=== PATIENT | female | born 1990 | race Two or more races ===

== ENCOUNTER 2019-05-12 10:15 | Emergency (ER) | payer BC ==
[2019-05-12 10:21] VITALS: BP 119/73
--- NOTE | 2019-05-12 11:45 | ER Document Report ---
ED Medical Screen (RME) - General Chief Complaint: Vaginal Bleeding Stated Complaint: VAGINAL BLEEDING Time Seen by Provider: 05/12/19 11:40 Mode of Arrival: Ambulatory Information source: Patient Notes: Patient is an otherwise healthy 28-year-old female presenting to the emergency department chief complaint of abnormal vaginal bleeding and left lower quadrant abdominal pain. Patient reports history of ectopic a few months back and had a right sided oophorectomy. Patient is concerned because she had a. About 1 month ago and has been having intermittent bleeding and left lower quadrant abdominal pain since then. She is concerned she may be having another ectopic . Patient has not had a confirmed positive test at this time however. Patient is a G3, P0. She denies any fevers, nausea, vomiting or diarrhea. Exam: Mild tenderness to palpation to left lower quadrant. I have greeted and performed a rapid initial assessment of this patient. A comprehensive ED assessment and evaluation of the patient, analysis of test results and completion of the medical decision making process will be conducted by additional ED providers. I have specifically instructed the patient or family members with the patient to immediately return to any nursing staff should anything change in the patient's condition or with their chief complaint. This medical record was dictated with voice recognizing software. There may be grammatical, syntax errors that are unintended. - Related Data Allergies/Adverse Reactions: No Known Allergies Allergy (Verified 05/12/19 10:17) Physical Exam - Vital signs Vitals: Temp Pulse Resp BP Pulse Ox 98.8 F 67 16 119/73 96 05/12/19 10:20 05/12/19 10:20 05/12/19 10:20 05/12/19 10:20 05/12/19 10:20 Course - Vital Signs Vital signs: Temp Pulse Resp BP Pulse Ox 98.8 F 67 16 119/73 96 05/12/19 10:20 05/12/19 10:20 05/12/19 10:20 05/12/19 10:20 05/12/19 10:20
[2019-05-12 12:13] LABS: APPEARANCE,URINE SLIGHTLY-CLOUDY; BILIRUBIN,URINE NEGATIVE (NEGATIVE); COLOR,URINE YELLOW; GLUCOSE, URINE NEGATIVE (NEGATIVE); KETONES,URINE NEGATIVE (NEGATIVE); LEUKOCYTE ESTERASE,URINE NEGATIVE (NEGATIVE); NITRITE,URINE NEGATIVE (NEGATIVE); PROTEIN,URINE NEGATIVE (NEGATIVE); URINE SPECIFIC GRAVITY 1.018; UROBILINOGEN,URINE NEGATIVE mg/dL (<2.0)
[2019-05-12 12:23] LABS: ABSOLUTE EOSINOPHILS # (AUTO) 0.1 10^3/uL (0.0-0.6); ABSOLUTE MONOCYTES (AUTO) 0.5 10^3/uL (0.1-1.4); ABSOLUTE NEUT (AUTO) 3.9 10^3/uL (1.7-8.2); BASOPHILS % (AUTO) 0.6 % (0-2); EOSINOPHILS % (AUTO) 1.6 % (0-6); HEMATOCRIT 41.3 % (36.0-47.0); HEMOGLOBIN 14.3 g/dL (12.0-15.5); MEAN CORPUSCULAR HEMOGLOBIN 32.1 pg (27.0-33.4); MEAN CORPUSCULAR HGB CONC 34.5 g/dL (32.0-36.0); MEAN CORPUSCULAR VOLUME 93 fl (80-97); MONOCYTES % (AUTO) 7.4 % (3-13); PLATELET COUNT 297 10^3/uL (150-450); RED BLOOD COUNT 4.45 10^6/uL (3.72-5.28); RED CELL DISTRIBUTION WIDTH 13.1 % (11.5-14.0); SEGMENTED NEUTROPHILS % (AUTO) 59.4 % (42-78); TOTAL CELLS COUNTED % (AUTO) 100 %; WHITE BLOOD COUNT 6.6 10^3/uL (4.0-10.5)
[2019-05-12 12:44] LABS: ALBUMIN 4.5 g/dL (3.5-5.0); ALKALINE PHOSPHATASE 50 U/L (38-126); ANION GAP 8 (5-19); ASPARTATE AMINO TRANSFERASE 21 U/L (14-36); BILIRUBIN,TOTAL 0.6 mg/dL (0.2-1.3); BLOOD UREA NITROGEN 11 mg/dL (7-20); CALCIUM 9.6 mg/dL (8.4-10.2); CARBON DIOXIDE 28 mmol/L (22-30); CHLORIDE 102 mmol/L (98-107); GLUCOSE 87 mg/dL (75-110); POTASSIUM 4.6 mmol/L (3.6-5.0); TOTAL PROTEIN 7.4 g/dL (6.3-8.2)
--- NOTE | 2019-05-12 13:08 | RADIOLOGY REPORT (SQ) ---
EXAM DESCRIPTION: U/S NON OB PEL TV W/DOPPLER COMPLETED DATE/TIME: 05/12/2019 12:47 pm REASON FOR STUDY: LLQ pain, abn bleeding COMPARISON: None. TECHNIQUE: Dynamic and static grayscale images acquired of the pelvis via transvaginal approach and recorded on PACS. Additional selected color Doppler and spectral images recorded. LIMITATIONS: None. FINDINGS: UTERUS: There is a small hypoechoic area along the posterior wall the uterus most likely s mall fibroid. This measures 1.2 x 1.6 x 1.1 cm. ENDOMETRIAL STRIPE: No focal or generalized thickening. No masses. CERVIX: No nabothian cysts. Questionable small area of calcification within the cervix with shadowin g. RIGHT OVARY AND DOPPLER: Normal size. No worrisome masses. Normal arterial vascular flow without evid ence for torsion. LEFT OVARY AND DOPPLER: Left ovary is normal in size and demonstrates normal flow. Adjacent to the l eft ovary is a 1.4 x 1.4 x 1.5 cm hypoechoic area. It demonstrates a fairly echogenic margin with a small rim of hypoechogenicity. FREE FLUID: There is a small amount of free fluid in the cul-de-sac. OTHER: No other significant finding. MEASUREMENTS: UTERUS: 8.1 x 5.4 x 4.3 cm. ENDOMETRIAL STRIPE: 1.2 cm. RIGHT OVARY: 3.1 x 2.1 x 2.1 cm. LEFT OVARY: 2.3 x 2.3 x 2.9 cm. IMPRESSION: 1. Small hypoechoic lesion in the posterior aspect of the uterus most likely small fibro id. 2. 1.4 x 1.4 x 1.5 cm lesion adjacent to the left ovary. Possibly exophytic cyst. Correlation with beta HCG is recommended. Ectopic cannot be excluded. Consider follow-up beta HCG and ult rasound as well. TECHNICAL DOCUMENTATION: JOB ID: [id number] [employer]- All Rights Reserved Rev-01/17 Reading location - IP/workstation name: [email or web address]
--- NOTE | 2019-05-12 14:40 | ER Document Report ---
ED GI/ - General Chief Complaint: Vaginal Bleeding Stated Complaint: VAGINAL BLEEDING Time Seen by Provider: 05/12/19 11:40 Mode of Arrival: Ambulatory Notes: Patient is a 28-year-old female who presents to the emergency department with a chief complaint of abdominal pain. Patient states she has had intermittent ab dominal pain located on the left lower quadrant for 2 days. Patient reports this feels like an aching type pain. Patient states she has had a similar pain in the past and did have a right ectopic in which she did require removal of her fallopian tube. Patient reports that this was just a few months ago. Patient also reports having some light pink vaginal discharge and bleeding like a. Last week. Patient states she is not currently on any control and is sexually active. 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 Patient reports her last menstrual cycle was in the middle of April. Patient denies fever. Patient denies nausea, vomiting or diarrhea. Patient denies urinary symptoms. Patient denies specific vaginal discharge or odor. Patient denies home positive test. - Related Data Allergies/Adverse Reactions: No Known Allergies Allergy (Verified 05/12/19 10:17) Past Medical History - General Information source: Patient - Social History Smoking Status: Never Smoker Chew tobacco use (# tins/day): No Frequency of alcohol use: None Drug Abuse: None Lives with: Spouse/Significant other Family History: None Patient has suicidal ideation: No Patient has homicidal ideation: No - Past Medical History Cardiac Medical History: Reports: None Pulmonary Medical History: Reports: None EENT Medical History: Reports: None Neurological Medical History: Reports: None Endocrine Medical History: Reports: None Renal/ Medical History: Reports: None Malignancy Medical History: Reports: None GI Medical History: Reports: None Musculoskeletal Medical History: Reports None Skin Medical History: Reports None Psychiatric Medical History: Reports: None Traumatic Medical History: Reports: None Infectious Medical History: Reports: None Surgical Hx: Negative Review of Systems - Review of Systems Constitutional: No symptoms reported EENT: No symptoms reported Cardiovascular: No symptoms reported Respiratory: No symptoms reported Gastrointestinal: See HPI Genitourinary: No symptoms reported Female Genitourinary: See HPI Musculoskeletal: No symptoms reported Skin: No symptoms reported Hematologic/Lymphatic: No symptoms reported Neurological/Psychological: No symptoms reported Physical Exam - Vital signs Vitals: Temp Pulse Resp BP Pulse Ox 98.8 F 67 16 119/73 96 05/12/19 10:20 05/12/19 10:20 05/12/19 10:20 05/12/19 10:20 05/12/19 10:20 Interpretation: Normal - Notes Notes: GENERAL: Well-appearing, well-nourished and in no acute distress. HEAD: Atraumatic, normocephalic. EYES: Pupils equal round and reactive to light, extraocular movements intact, sclera anicteric, conjunctiva are normal. ENT: Nares patent, oropharynx clear without exudates. Moist mucous membranes. NECK: Normal range of motion, supple without lymphadenopathy or JVD. LUNGS: Breath sounds clear to auscultation bilaterally and equal. No wheezes rales or rhonchi. HEART: Regular rate and rhythm without murmurs, rubs or gallops. ABDOMEN: Soft, mild left lower quadrant tenderness, normoactive bowel sounds. No guarding, no rebound. No masses appreciated. BACK: No cervical, thoracic, lumbar midline tenderness. No saddle anesthesia, normal distal neurovascular exam. GENITOURINARY: Deferred. EXTREMITIES: Normal range of motion, no pitting or edema. No clubbing or cyanosis. NEUROLOGICAL: Cranial nerves II through XII grossly intact. Normal speech, normal gait. PSYCH: Normal mood, normal affect. SKIN: Warm, Dry, normal turgor, no rashes or lesions noted. Course - Re-evaluation Re-evalutation: 05/12/19 14:45 I did speak with Dr. Westbrook who is director industrial relations for [employer] in regards to the patient's ultrasound read and negative hcg qual. He does state that the cyst to the left ovary does need to be followed closely but concern for ectopic is low at this time since the blood qual was negative. I will refer the patient to [employer] as she reports she does not go to [employer] [facility] anymore. Patient reports she does have health insurance. Patient to call this week for follow up appointment. Strict return precautions given to the patient. Patient is nontoxic appearing and in no acute distress. - Vital Signs Vital signs: Temp Pulse Resp BP Pulse Ox 98.8 F 67 16 119/73 96 05/12/19 10:20 05/12/19 10:20 05/12/19 10:20 05/12/19 10:20 05/12/19 10:20 - Laboratory Result Diagrams: 05/12/19 12:03 05/12/19 12:03 Laboratory results interpreted by me: 05/12/19 11:44 Urine Blood SMALL H 05/12/19 14:39 Patient serum hCG was negative. Patient does not have a leukocytosis, anemia, alteration in her electrolytes or kidney function. Patient does not have a urinary tract infection. Lab work unremarkable. Laboratory 05/12/19 05/12/19 05/12/19 11:44 12:03 12:03 WBC 6.6 RBC 4.45 Hgb 14.3 Hct 41.3 MCV 93 MCH 32.1 MCHC 34.5 RDW 13.1 Plt Count 297 Lymph % (Auto) 31.0 Harmon % (Auto) 7.4 Eos % (Auto) 1.6 Baso % (Auto) 0.6 Absolute Neuts (auto) 3.9 Absolute Lymphs (auto) 2.0 Absolute Monos (auto) 0.5 Absolute Eos (auto) 0.1 Absolute Basos (auto) 0.0 Seg Neutrophils % 59.4 Sodium Potassium Chloride Carbon Dioxide Anion Gap BUN Creatinine Est GFR ( Amer) Est GFR (MDRD) Non-Af Glucose Calcium Total Bilirubin Direct Bilirubin Neonat Total Bilirubin Neonat Direct Bilirubin Neonat Indirect Bili AST ALT Alkaline Phosphatase Total Protein Albumin Lipase Serum HCG, Qual NEGATIVE Urine Color YELLOW Urine Appearance SLIGHTLY-CLOUDY Urine pH 7.0 Ur Specific [place] 1.018 Urine Protein NEGATIVE Urine Glucose (UA) NEGATIVE Urine Ketones NEGATIVE Urine Blood SMALL H Urine Nitrite NEGATIVE Urine Bilirubin NEGATIVE Urine Urobilinogen NEGATIVE Ur Leukocyte Esterase NEGATIVE Urine WBC (Auto) 4 Urine RBC (Auto) 3 Squamous Epi Cells Auto 6 Urine Mucus (Auto) RARE Urine Ascorbic Acid NEGATIVE 05/12/19 12:03 WBC RBC Hgb Hct MCV MCH MCHC RDW Plt Count Lymph % (Auto) Harmon % (Auto) Eos % (Auto) Baso % (Auto) Absolute Neuts (auto) Absolute Lymphs (auto) Absolute Monos (auto) Absolute Eos (auto) Absolute Basos (auto) Seg Neutrophils % Sodium 138.3 Potassium 4.6 Chloride 102 Carbon Dioxide 28 Anion Gap 8 BUN 11 Creatinine 0.60 Est GFR ( Amer) > 60 Est GFR (MDRD) Non-Af > 60 Glucose 87 Calcium 9.6 Total Bilirubin 0.6 Direct Bilirubin 0.0 Neonat Total Bilirubin Not Reportable Neonat Direct Bilirubin Not Reportable Neonat Indirect Bili Not Reportable AST 21 ALT 16 Alkaline Phosphatase 50 Total Protein 7.4 Albumin 4.5 Lipase 79.0 Serum HCG, Qual Urine Color Urine Appearance Urine pH Ur Specific [place] Urine Protein Urine Glucose (UA) Urine Ketones Urine Blood Urine Nitrite Urine Bilirubin Urine Urobilinogen Ur Leukocyte Esterase Urine WBC (Auto) Urine RBC (Auto) Squamous Epi Cells Auto Urine Mucus (Auto) Urine Ascorbic Acid - Diagnostic Test Radiology reviewed: Reports reviewed Radiology results interpreted by me: 05/12/19 14:40 Transvaginal US 05/12/19 11:43 IMPRESSION: 1. Small hypoechoic lesion in the posterior aspect of the uterus most likely small fibroid. 2. 1.4 x 1.4 x 1.5 cm lesion adjacent to the left ovary. Possibly exophytic cyst. Correlation with beta HCG is recommended. Ectopic cannot be excluded. Consider follow-up beta HCG and ultrasound as well. Discharge - Discharge Clinical Impression: Nausea, Vaginal bleeding Abdominal pain Qualifiers: Abdominal location: left lower quadrant Qualified Code(s): R10.32 - Left lower quadrant pain Condition: Stable Disposition: HOME, SELF-CARE Additional Instructions: Today you were seen in the emergency department for vaginal bleeding and abdominal pain. Your blood work was unremarkable and today you were negative for . We did check the blood work. We did obtain an ultrasound which did show a possible uterine fibroid as well as a cyst that was adjacent to the left ovary. I did speak with Dr. Westbrook our on-call [employer]PORT [employer] who recommends close follow-up of this cyst. Please return to emergency department if you do develop severe vaginal bleeding, severe abdominal pain, nausea, vomiting or diarrhea. I will give you the contact information for [facility], please call them this week to make a follow-up appointment. Abdominal Pain There are many causes of abdominal pain. Pain can mean a serious problem requiring surgery (such as appendicitis). It can also be an innocent problem that goes away on its own (such as a viral infection). Often, time must pass to determine the cause of pain. The physician does not feel that hospitalization is necessary, at present. Things may change within the next 24 hours. Call the doctor or come back for re- examination if any problems occur, such as: (1) Pain that becomes more severe, steady, or becomes concentrated in one specific area. Also, pain that is more severe with movement or coughing. (2) Vomiting that persists or becomes more frequent. (3) Blood in the vomitus, urine, or bowel movements. Blood in the stool may have a tarry or black appearance. (4) Shaking chills or fever greater than 100 degrees F. (5) The abdomen becomes more distended or swollen. (6) Bowel movements cease. (7) Failure to improve as expected. Prescriptions: Ibuprofen [Motrin 800 mg Tablet] 800 mg PO Q8H PRN #20 tab PRN Reason:
== END 2019-05-12 15:23 | disposition home or self-care (01) ==
LOC: ER 10:15
DX: R10.32 Left lower quadrant pain (principal); R10.814 Left lower quadrant abdominal tenderness; N93.9 Abnormal uterine and vaginal bleeding, unspecified; R11.0 Nausea; Z87.59 Personal history of other complications of pregnancy, childbirth and the puerperium; Z90.79 Acquired absence of other genital organ(s)
CPT/HCPCS: 36415; 76830; 80053; 81001; 83690; 84703; 85025; 93976; 99284

== ENCOUNTER → 2019-06-29 | Outpatient (CLI) | payer BC ==
--- NOTE | 2019-06-29 16:21 | RADIOLOGY REPORT (SQ) ---
EXAM DESCRIPTION: HYSTEROSALPINGOGRAM; HYSTERO CATH/INJECTION COMPLETED DATE/TIME: 06/29/2019 9:34 am REASON FOR STUDY: (N97.9)FEMALE INFERTILITY, UNSPECIFIED; INFERTILITY N97.9 FEMALE INFERTILITY, UNS PECIFIED COMPARISON: None. PROCEDURE: PRE-PROCEDURE: Procedure was explained to the patient. She was told to expect cramping du ring the procedure, and possible spotting post procedure. PROCEDURE: The cervix was prepped in sterile fashion. Under direct visual inspection, the cervix was cannulated with the hysterosalpingogram catheter and contrast injected. TECHNIQUE: Temporal fluoroscopic images acquired during the procedure stored to PACS. FLUOROSCOPY TIME: 0.14 minutes 7 images saved to PACS. LIMITATIONS: None. FINDINGS: UTERUS: No uterine congenital abnormalities identified. No synechia. RIGHT ADNEXA: Normal size of the fallopian tube without free spillage of the contrast into the perito pearl cavity. LEFT ADNEXA: Normal size of the fallopian tube with free spillage of the contrast into the peritoneal cavity. POST PROCEDURE: The patient tolerated the procedure with no adverse effects. IMPRESSION: The absence of free spillage of the contrast into the peritoneal cavity on the right gonzález e could be related to history of prior ectopic. There are no intrauterine filling defects or congeni jimbo uterine abnormalities. The left fallopian tube is normal in size with free spillage of the contr ast into the peritoneal cavity. COMMENT: Study performed by and interpreted by the radiologist. Quality ID 145: Final reports for procedures using fluoroscopy that document radiation exposure jazmyne roc, or exposure time and number of fluorographic images (if radiation exposure indices are not avail able) TECHNICAL DOCUMENTATION: JOB ID: [id number] [employer]- All Rights Reserved Reading location - IP/workstation name: [email or web address]-
--- NOTE | 2019-06-29 16:21 | RADIOLOGY REPORT (SQ) ---
EXAM DESCRIPTION: HYSTEROSALPINGOGRAM; HYSTERO CATH/INJECTION COMPLETED DATE/TIME: 06/29/2019 9:34 am REASON FOR STUDY: (N97.9)FEMALE INFERTILITY, UNSPECIFIED; INFERTILITY N97.9 FEMALE INFERTILITY, UNS PECIFIED COMPARISON: None. PROCEDURE: PRE-PROCEDURE: Procedure was explained to the patient. She was told to expect cramping du ring the procedure, and possible spotting post procedure. PROCEDURE: The cervix was prepped in sterile fashion. Under direct visual inspection, the cervix was cannulated with the hysterosalpingogram catheter and contrast injected. TECHNIQUE: Temporal fluoroscopic images acquired during the procedure stored to PACS. FLUOROSCOPY TIME: 0.14 minutes 7 images saved to PACS. LIMITATIONS: None. FINDINGS: UTERUS: No uterine congenital abnormalities identified. No synechia. RIGHT ADNEXA: Normal size of the fallopian tube without free spillage of the contrast into the perito pearl cavity. LEFT ADNEXA: Normal size of the fallopian tube with free spillage of the contrast into the peritoneal cavity. POST PROCEDURE: The patient tolerated the procedure with no adverse effects. IMPRESSION: The absence of free spillage of the contrast into the peritoneal cavity on the right gonzález e could be related to history of prior ectopic. There are no intrauterine filling defects or congeni jimbo uterine abnormalities. The left fallopian tube is normal in size with free spillage of the contr ast into the peritoneal cavity. COMMENT: Study performed by and interpreted by the radiologist. Quality ID 145: Final reports for procedures using fluoroscopy that document radiation exposure jazmyne roc, or exposure time and number of fluorographic images (if radiation exposure indices are not avail able) TECHNICAL DOCUMENTATION: JOB ID: [id number] [employer]- All Rights Reserved Reading location - IP/workstation name: [email or web address]-
== END ==
LOC: RAD 07:27
PROVIDERS: ATTEND Obstetrics & Gynecology
DX: N97.9 Female infertility, unspecified (principal)
CPT/HCPCS: 58340; 74740

== ENCOUNTER 2019-08-29 12:51 | Emergency (ER) | payer OTHER ==
[2019-08-29] MEDS ORDERED: IBUPROFEN 800 MG TABLET PO ONE (13:52)
[2019-08-29] MEDS ORDERED: CYCLOBENZAPRINE HCL 10 MG TABLET PO ONE (13:52)
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
[2019-08-29 15:16] VITALS: BP 123/77
== END 2019-08-29 15:21 | disposition home or self-care (01) ==
LOC: ER 12:51
DX: M25.532 Pain in left wrist (principal); M54.2 Cervicalgia; V87.7XXA Person injured in collision between other specified motor vehicles (traffic), initial encounter
CPT/HCPCS: 99283